=== PATIENT | female | born 1935 | race Caucasian/White ===

== ENCOUNTER 2017-12-19 13:04 | Emergency (ER) | payer BC, MEDICARE ==
[~2017-12-19] VITALS: Ht 160 cm; Wt 58.0 kg
[2017-12-19 13:10] VITALS: BP 178/74; PULSE 69; RESP 17; TEMP 98.7; O2SAT 98
[2017-12-19] MEDS ORDERED: LIDOCAINE 1%/EPINEPHrine 1:100,000 SOLN 20 ML VIAL INFIL ONE (13:15)
[2017-12-19] MEDS ORDERED: TETANUS/DIPHTHERIA TOXOID ADULT 0.5 ML VIAL IM ONE (13:15)
[2017-12-19] MEDS ORDERED: traMADol HCL 50 MG TAB PO ONE ×2 (13:15→16:30)
[2017-12-19] MEDS ORDERED: AUGM500T7 PO (13:23)
--- NOTE | 2017-12-19 13:24 | PD ---
HPI Chief Complaint: Dog bite to the face Time Seen by Provider: 13:15 Travel History International Travel<30 days: No Contact w/Intl Traveler<30days: No Traveled to known affect area: No History of Present Illness HPI 82-year-old female patient presents to the ER today, states that she was greeting a neighbor when the neighbor's dog jumped up and bit her in the face. She also states that she had hit the pavement with her right elbow. She denies any other issues or injuries. She did not have any loss of consciousness. The dog is a neighbors dog and she suspect that the dog is fully vaccinated. She states that she knows the dog well. Modifying Factors: None Associated Signs & Symptoms: Dog bite to the face Risk Factors: None PFSH Social History Tobacco Use: No Allergies-Medications (Allergen,Severity, Reaction): Coded Allergies: morphine (Verified Allergy, Intermediate, 12/19/17) metronidazole (Unverified Allergy, Mild, 06/18/17) Reported Meds & Prescriptions Reported Meds & Active Scripts Active Augmentin (Amoxicillin-Clavulanate) 500-125 mg Tab 500 Mg PO Q8H 7 Days Review of Systems Except as stated in HPI: all other systems reviewed are Neg Physical Exam Narrative GENERAL: Well-developed elderly white female patient currently in mild distress. Awake and oriented 3. SKIN: Focused skin assessment warm/dry. HEAD: She has a C-shaped laceration measuring 8 cm on the left jawline area and 1 cm lacerations 2 to the left cheek. Normocephalic. EYES: Pupils equal and round. No scleral icterus. No injection or drainage. ENT: No nasal bleeding or discharge. Mucous membranes pink and moist. NECK: Trachea midline. No JVD. Supple. CARDIOVASCULAR: Regular rate and rhythm. No murmur appreciated. RESPIRATORY: No accessory muscle use. Clear to auscultation. Breath sounds equal bilaterally. GASTROINTESTINAL: Abdomen soft, non-tender, nondistended. Hepatic and splenic margins not palpable. MUSCULOSKELETAL: No obvious deformities. No clubbing. No cyanosis. No edema. NEUROLOGICAL: Awake and alert. No obvious cranial nerve deficits. Motor grossly within normal limits. Normal speech. PSYCHIATRIC: Appropriate mood and affect; insight and judgment normal. Data Data Last Documented VS Vital Signs Date Time Temp Pulse Resp B/P (MAP) Pulse Ox O2 Delivery O2 Flow Rate FiO2 12/19/17 13:47 67 15 168/76 (106) 99 Room Air 12/19/17 13:10 98.7 Orders Orders Tramadol (Ultram) (12/19/17 13:15) Lidocai-Epi 1%-1:100,000 Inj (Xylocaine- (12/19/17 13:15) Tetanus/Diphtheria Tox Adult (Tetanus/Di (12/19/17 13:15) Ct Brain W/O Iv Contrast(Rout) (12/19/17 13:43) MDM Medical Decision Making Medical Screen Exam Complete: Yes Emergency Medical Condition: Yes Medical Record Reviewed: Yes Differential Diagnosis Dog bite to the face Narrative Course CT of the brain is negative for acute intracranial injuries. Tetanus shot was given in the ER. Lacerations were sutured by nurse practitioner. Patient was given antibiotics. Wound care instructions are given. Return for any worsening in pain, bleeding, signs of wound infection as needed. The dog will need to be observed for the next 10 days and needs to be evaluated if there are any signs of abnormal behavior. Vaccination records need to be obtained from neighbor for the dog. The plan was discussed with the patient and she states understanding. I have also talked to Dr. Camp regarding the patient's case and he states he will be glad to see the patient in follow-up. Diagnosis Primary Impression: Dog bite of face Referrals: Jacoby Camp DMD Med/Other Pt SpecificInfo: Prescription(s) given Scripts Amoxicillin-Clavulanate (Augmentin) 500-125 mg Tab 500 MG PO Q8H for Infection for 7 Days, TAB 0 Refills Prov: Simba Leija MD 12/19/17 Disposition: 01 DISCHARGE HOME Condition: Stable Simba Leija MD Dec 19, 2017 13:24
[2017-12-19 13:47] VITALS: BP 168/76; PULSE 67; RESP 15; O2SAT 99
--- NOTE | 2017-12-19 14:46 | RADRPT ---
EXAM DATE/TIME: 12/19/2017 14:17 [facility] COMPARISON: No previous studies available for comparison. INDICATIONS : Knocked down by dog, hit head. RADIATION DOSE: 56.35 CTDIvol (mGy) MEDICAL HISTORY : None SURGICAL HISTORY : Appendectomy. Hysterectomy. ENCOUNTER: Initial ACUITY: 1 day PAIN SCALE: 3/10 LOCATION: Left facial TECHNIQUE: Multiple contiguous axial images were obtained of the head. Using automated exposure control and adj ustment of the mA and/or kV according to patient size, radiation dose was kept as low as reasonably a chievable to obtain optimal diagnostic quality images. DICOM format image data is available electro nically for review and comparison. FINDINGS: CEREBRUM: The ventricles are normal for age. No evidence of midline shift, mass lesion, hemorrhage or acute in farction. No extra-axial fluid collections are seen. POSTERIOR FOSSA: The cerebellum and brainstem are intact. The 4th ventricle is midline. The cerebellopontine angle i s unremarkable. EXTRACRANIAL: The visualized portion of the orbits is intact. SKULL: The calvaria is intact. No evidence of skull fracture. CONCLUSION: No acute disease. No evidence of acute infarct, hemorrhage, mass or edema. Jeff Choi MD on December 19, 2017 at 14:44 Board Certified Radiologist. This report was verified electronically.
--- NOTE | 2017-12-19 15:55 | PD ---
Physical Exam Time Seen by Provider: 15:54 Data Data Last Documented VS Vital Signs Date Time Temp Pulse Resp B/P (MAP) Pulse Ox O2 Delivery O2 Flow Rate FiO2 12/19/17 13:47 67 15 168/76 (106) 99 Room Air 12/19/17 13:10 98.7 Orders Orders Tramadol (Ultram) (12/19/17 13:15) Lidocai-Epi 1%-1:100,000 Inj (Xylocaine- (12/19/17 13:15) Tetanus/Diphtheria Tox Adult (Tetanus/Di (12/19/17 13:15) Ct Brain W/O Iv Contrast(Rout) (12/19/17 13:43) Ed Discharge Order (12/19/17 15:44) MDM Medical Record Reviewed: Yes Supervised Visit with MISAEL: No Procedures Procedure Narrative LACERATION LOCATION: Left cheek LENGTH: 7 cm NUMBER OF STITCHES/LIGIA: 10 sutures REPAIR: The area of the laceration was prepped with Betadine and sterilely draped. The laceration was infiltrated with 1% lidocaine with epinephrine. The wound was copiously irrigated and explored without evidence of foreign body , tendon injury or neurovascular injury. The wound was closed using 5-0 Prolene. This was a single layer repair. A sterile dressing was applied. The patient was advised to keep the dressing clean and dry. Patient tolerated the procedure well. LACERATION LOCATION: Left cheek LENGTH: 1.5 cm NUMBER OF STITCHES/LIGIA: 1 sutures REPAIR: The area of the laceration was prepped with Betadine and sterilely draped. The laceration was infiltrated with 1% lidocaine with epinephrine. The wound was copiously irrigated and explored without evidence of foreign body , tendon injury or neurovascular injury. The wound was closed using 5-0 Prolene. This was a single layer repair. A sterile dressing was applied. The patient was advised to keep the dressing clean and dry. Patient tolerated the procedure well. LACERATION LOCATION: Left cheek LENGTH: 1.5 cm NUMBER OF STITCHES/LIGIA: 1 sutures REPAIR: The area of the laceration was prepped with Betadine and sterilely draped. The laceration was infiltrated with 1% lidocaine with epinephrine. The wound was copiously irrigated and explored without evidence of foreign body , tendon injury or neurovascular injury. The wound was closed using 5-0 Prolene. This was a single layer repair. A sterile dressing was applied. The patient was advised to keep the dressing clean and dry. Patient tolerated the procedure well. LACERATION LOCATION: Left cheek LENGTH: 1.5 cm NUMBER OF STITCHES/LIGIA: 1 sutures REPAIR: The area of the laceration was prepped with Betadine and sterilely draped. The laceration was infiltrated with 1% lidocaine with epinephrine. The wound was copiously irrigated and explored without evidence of foreign body , tendon injury or neurovascular injury. The wound was closed using 5-0 Prolene. This was a single layer repair. A sterile dressing was applied. The patient was advised to keep the dressing clean and dry. Patient tolerated the procedure well. Diagnosis Primary Impression: Dog bite of face Referrals: Jacoby Camp DMD Scripts Amoxicillin-Clavulanate (Augmentin) 500-125 mg Tab 500 MG PO Q8H for Infection for 7 Days, TAB 0 Refills Prov: Simba Leija MD 12/19/17 Disposition: 01 DISCHARGE HOME Condition: Stable Jessy Benavides Dec 19, 2017 15:55
[2017-12-19] MEDS ORDERED: TRAM50TA PO ×2 (15:56→15:59)
[2017-12-19] MEDS ORDERED: METO100T PO (15:56)
[2017-12-19] MEDS ORDERED: XARE20TA PO (15:56)
[2017-12-19] MEDS ORDERED: LORA-392 PO (15:56)
[2017-12-19] MEDS ORDERED: CYCL10TA PO (15:56)
[2017-12-19 16:20] VITALS: BP 168/79; PULSE 77; RESP 15; O2SAT 99
[2017-12-19] MEDS ORDERED: PERI0.126 SWISH-SPIT (16:22)
== END 2017-12-19 16:47 | disposition home or self-care (01) ==
LOC: NEPC 13:04
DX: S01.85XA Open bite of other part of head, initial encounter (principal); W54.0XXA Bitten by dog, initial encounter; Z23 Encounter for immunization
CPT/HCPCS: 12015; 70450; 90471; 90714